=== PATIENT | female | born 2000 | race Caucasian/White ===

== ENCOUNTER 2025-08-27 11:06 | Emergency (ER) | payer MEDICAID, SELFPAY ==
[2025-08-27 11:09] VITALS: BP 134/93; PULSE 102; RESP 20; TEMP 36.8; O2SAT 97; BMI 28.9
--- OUTSIDE RECORDS SUMMARY | 2025-08-27 11:09 | XMS_ITS | Clinical Summary ---
Author Organization [facility] Address [address] [place] [address] Care Team Providers Care Right Of Way Agent Name Role Phone Jennifer Forman PA-C Primary Care Provide r Source Comments You are receiving this document as you are listed as the primary care provider,follow-up provider, or the patient has been referred to you for consultation.This is in compliance with the Medicare and[facility] EHR Incentive Program,which states Providers who transition their patient to another setting of careor provider of care or refers their patient to another provider of care shouldprovide summary care record for each transition of care or referral. [facility] Allerg[facility] Active Allergy Reactions Criticality Noted Date Comments Penicillins Hives High 02/01/2021 Medications w/o A Vit-Fe Fum-FA ( VJVCRFY-XMJT-SO LIC ACID) 106.5-1 MG capsule Take 1 Capsule by mouth daily. Active sertraline (ZOLOFT) 100 MG tablet Take 1 Tablet (100 mg) by mouth daily. 90 Tablet 3 10/30/2024 Active Active Problems Problem Noted Date Diagnosed Date Anxiety 03/07/2022 Comments Yes Resolved Problems Problem Noted Date Diagnosed Date Resolved Date Anxiety disorder affecting p regnancy, antepartum 06/03/2024 10/04/2024 Careplan: Healthy Beginnings 06/03/2024 06/18/2025 Overview (06/03/2024): This patient is enrolled in the Healthy Beginnings Program. The program provides patients with support, education, referrals and resources during their . Reason for enrollment: Insurance, resources as needed For more information, please contact Justina Silva, Healthy Beginnings Specialist, at [phone]. Supervision of normal first , antepartum 01/29/2024 10/04/2024 Encounters Date Type Department Care Team Description 07/18/2025 Nurse Triage Short Nurse Line [address] [place] [address] Jennifer Forman PA-C Alcohol, Abuse 07/18/2025 Telephone Careline [address] [place], [place] [address] Unknown, Physician Withdrawal 07/09/2025 Nurse Triage Short Nurse Line [address] [place] [address] Jennifer Forman PA-C MISCARRIAGE 07/08/2025 2:00 PM CDT Telemedicine [place] [facility]15 Obstetrics/Gynecol ogy [address] [place] [address] Tom Harden MD Missed (Primary Dx) 07/07/2025 Telephone [place] [facility] Obstetrics/Gynecol ogy [address] [place] [address] Tom Harden MD MISCARRIAGE 07/01/2025 8:45 AM CDT Ancillary Procedure [place] [address]trasound [address] [place] [address] Elinor Mccauley MD Missed menses 07/01/2025 Results Follow-Up [place] [facility] Obstetrics/Gynecol ogy [address] [place] [address] Elinor Mccauley MD 06/23/2025 Notes/Orders [place] [facility] Obstetrics/Gynecol ogy 1515 [facility]. [place] [address] [address] Careplan: Healthy Beginnings (Primary Dx) 06/18/2025 10:30 AM CDT Phone Visit [place] [facility] Obstetrics/Gynecol ogy 1515 [facility]. [place] [address] Elinor Mccauley MD bradycardia, antepartum condition or complication (Primary Dx) 06/17/2025 10:30 AM CDT Ancillary Procedure [place] [facility] Ultrasound 15[address] [facility]. [place] [address] Elinor Mccauley MD Encounter for supervision of normal first in first trimester 06/17/2025 Results Follow-Up [place] [facility]15 Obstetrics/Gynecol ogy 1515 [facility]. [place] [address] Elinor Mccauley MD 06/17/2025 Nurse Triage [place] [facility] Obstetrics/Gynecol ogy 1515 [facility]. [place] [address] Elinor Mccauley MD Concerns 06/17/2025 Nurse Triage [facility] Nurse Line [address] [place] [address] Jennifer Forman PA-C , NOS 06/17/2025 Telephone [facility] 14[address] [facility]. [place] [address] Jennifer Forman PA-C Concerns 06/11/2025 12:30 PM CDT Phone Visit [facility] Obstetrics/Gynecol ogy [address] [place] [address] Nurse Intake 4, [id number] Ob Missed menses (Primary Dx) 06/11/2025 E-Visit [facility] Obstetrics/Gynecol ogy [address] [place] [address] Estee, Generic Provider from Last 3 Months Immunizations Immunization Administration Dates Next Due Adult RSV Abrysvo 07/29/2024 DTaP 2002 [id number] (Pediarix) 11/06/2003,02/04/2003 DTaP/Hib 01/01/2004 [id number] 10/07/2009,08/12/2009 HepB Ped/Adol (0-18 yrs) 2002 HepB, Unspecified Formulation 2002 Hib (ActHIB) 11/06/2003,02/04/2003,2002 IPV (Polio) 2002 Influenza (Flucelvax), Preserv Free QIV 06/07/20 20 Benita COVID-19 Vaccine 05/01/2021 MCV4 Menveo 2m.+ (two vial) 04/21/2015 MMR 11/06/2003 Pneumococcal 7, PED 11/06/2003,02/04/2003,2002 Tdap 06/03/2024,04/21/2015 Varicella 11/06/2003 Family History Medical History Relation Name Comments No Known Problems Father Hole in Heart- Born With Mother Stroke Mother Heart Disease Maternal Grandfather Stroke Maternal Grandfather Heart Disease Maternal Grandmother No Known Problems Paternal Grandfather Cancer, Breast Paternal Grandmother No Known Problems Sister Relation Name Status Comments Father Alive Mother Alive Maternal Grandfather Alive Maternal Grandmother Alive Paternal Grandfather Alive Paternal Grandmother Alive Sister Alive Social History Tobacco Use Types Packs/Day Years Used Date Smoking Tobacco: Never Passive Smoke Exposure: Never Smokeless Tobacco: Never Tobacco Cessation:Counseling Given: No Alcohol Use Standard Drinks/Week Comments Not Currently 0 (1 standard drink = 0.6 oz pur e alcohol) rare PHQ-2 Answer Date Recorded PHQ-2 Score 2 01/15/2025 Depression Answer Date Recor ded Last EPDS Total Score 17 02/18/2025 Last EPDS Self Harm Result Not on file 02/18 Comments Yes Sex and Gender Information Value Date Recorded Sex Assigned at Not on file Legal Sex Female 5:48 AM CDT Gender Identity Not on file Sexual Orientation Not on file Occupation Industry Job Start Date Job End Date Homemaker Not on file Not on file Not on file Fiancee: Bob, Control Valve Tech Not on file Not on file Not on file Last Filed Vital Signs Vital Sign Reading Time Taken Comments Blood Pressure 106/88 04/02/2025 8:25 AM CDT Pulse 120 04/02/2025 8:25 AM CDT Temperature 36.6 C (97.8 F) 02/01/2021 2:43 PM CDT Respiratory Rate 20 02/01/2021 2:43 PM CDT Oxygen Saturation 99% 02/01/2021 2:43 PM CDT Inhaled Oxygen Concentration - - Weight 90.7 kg (200 lb) 01/27/2025 9:11 AM CDT Height 171.5 cm (5' 7.5) 01/29/2024 10:42 AM CD T Body Mass Index 30.86 01/29/2024 10:42 AM CDT Plan of Treatment Upcoming Encounters Date Type Department Care Team (Late st Contact Info) Description 09/04/2025 11:30 AM POUND ATTENDANT Appointment [place] [address] Obstetrics/Gynecology [address] [place] [address] Tatiana Rebollar, DIALYSIS TECH, CNM [address] [place] [address] Health Maintenance Due Date Last Done Comments Cervical Cancer Screening Due 2002 MenB Immunization Discussion 2002 HPV Vaccine (1 - 3-dose series) 2017 Adult Preventive Visit 2020 Chlamydia 01/28/2025 01/29/2024, 10/0 09/2020, 02/01/2021, Additional history exists COVID-19 Vaccine ( - season) 2025 05/01/2021 Influenza Vaccine (#1) 2025 06/07/2020 DTaP/Tdap/Td Vaccine (6 - Tdap) 06/03/2034 06/03/2024, 04/21/2015, 01/01/2004, Additional history exists Zoster/Shingles Vaccine (1 of 2) 2052 HepB Vaccine Completed 11/06/2003, 01/23, 2002, Additional history exists Pneumococcal Vaccine Aged Out 11/06/2003, 02/04/2003, 2002 No longer eligible based on patient's age to complete this topic Hib Vaccine Completed 01/01/2004, 10/26, 02/04/2003, Additional history exists MCV4 Vaccine Aged Out 04/21/2015 No longer eligi ble based on patient's age to complete this topic HIV Screening (Preventive Services) Completed 01/29/2024 Hep C Screening (Preventive Services) Completed 01/29/2024 HepA Vaccine Aged Out No longer eligi ble based on patient's age to complete this topic Procedures Procedure Name Priority Date/Time Associated Diagnosis Comments US OB < 14 WEEKS W EV SINGLE FOLLOW UP GROWTH Routine 07/01/2025 9:21 AM CDT Missed menses US OB <14 WEEKS W EV SINGLE Routine 06/17/2025 10:58 AM CDT Encounter for supervision of normal first in first trimester CHLAMYDIA & GC, URINE (14 YEARS AND OLDER) Routine 01/29/2024 11:39 AM CDT Supervision of normal first , antepartum HIV 1/2 AG/AB 4TH GEN Routine 01/29/2024 11:33 AM CDT Supervision of normal first , antepartum HEPATITIS C ANTIBODY, WITH REFLEX (ANTI-HCV) Routine 01/29/2024 11:33 AM CDT Supervision of normal first , antepartum from Last 3 Months or Most Recently Relevant to Health Maintenance Results * US OB <14 Weeks w EV Single Follow Up Growth (07/01/2025 9:21 AM CDT) Anatomical Region Laterality Modality Pelvis Ultrasound Impressions 07/01/2025 9:31 AM CDT Findings diagnostic for nonviable . Signed by: Roland Weston 07/01/2025 9:31 AM Narrative 07/01/2025 9:31 AM CDT EXAM: US OB < 14 WEEKS W EV SINGLE FOLLOW UP GROWTH INDICATION: missed menses COMPARISON: 06/17/2025 TECHNIQUE: Transabdominal and transvaginal imaging was performed. FINDINGS: Gestational sac: Single intrauterine gestational sac. Hemingway-rump length is 5 mm (significantly less than expected given measurements on 06/17/2025). No cardiac activity is identified. Right Ovary: recently measured, appears unremarkable. Left Ovary: recently measured, appears unremarkable. No suspicious adnexal masses. Free Fluid: No significant free fluid. GA by LMP: 11w0d GA by Prior US: 8w1d GA by today's US: 6w3d ANITRA by today's US: N/A Procedure Note Roland Weston MD - 07/01/2025 EXAM: US OB < 14 WEEKS W EV SINGLE FOLLOW UP GROWTH INDICATION: missed menses COMPARISON: 06/17/2025 TECHNIQUE: Transabdominal and transvaginal imaging was performed. FINDINGS: Gestational sac: Single intrauterine gestational sac. Hemingway-rump lengthis 5 mm (significantly less than expected given measurements on06/17/2025). No cardiac activity is identified. Right Ovary: recently measured, appears unremarkable. Left Ovary: recently measured, appears unremarkable. No suspicious adnexal masses. Free Fluid: No significant free fluid. GA by LMP: 11w0d GA by Prior US: 8w1d GA by today's US: 6w3d ANITRA by today's US: N/A IMPRESSION Findings diagnostic for nonviable . Signed by: Roland Weston 07/01/2025 9:31 AM us Elinor Mccauley MD RAD US Final Result * US OB <14 Weeks W EV Single (06/17/2025 10:58 AM CDT) Anatomical Region Laterality Modality Pelvis Ultrasound Impressions 06/17/2025 1:37 PM CDT 1. Early single living intrauterine with sonographic gestational age of six weeks one day, yielding an estimated date of delivery of 02/09/2026. 2. Cardiac motion is bradycardic at 86 beats per minute. First trimester pregnancies that demonstrate heart rates of less than 100 bpm are at an increased risk for poor outcomes. Consider short-term followup. Signed by: Casie Haider 06/17/2025 1:37 PM Narrative 06/17/2025 1:37 PM CDT EXAM: US OB <14 WEEKS W EV SINGLE INDICATION: COMPARISON: None TECHNIQUE: Transabdominal and transvaginal imaging was performed. FINDINGS: Gestational sac: Unremarkable. There is a trace area of subchorionic hemorrhage inferior to the gestational sac measuring 5 x 5 x 2 mm. Hemingway-rump length measures 0.4 cm, corresponding to 6w1d gestational age. Gestational sac location: Eccentric-within normal ANITRA: 02/09/2026 Embryonic/ cardiac activity is identified at 86 bpm. Right Ovary: Measures 3.6 x 2.3 x 1.5 cm and contains a probable corpus luteum. Left Ovary: Measures 3.2 x 1.9 x 1.8 cm and appears unremarkable. No suspicious adnexal masses. Free Fluid: No significant free fluid. GA by LMP: 9w0d GA by Prior US: None GA by today's US: 6w1d ANITRA by today's US: 02/09/2026 Procedure Note Casie Haider MD - 06/17/2025 EXAM: US OB <14 WEEKS W EV SINGLE INDICATION: COMPARISON: None TECHNIQUE: Transabdominal and transvaginal imaging was performed. FINDINGS: Gestational sac: Unremarkable. There is a trace area of subchorionichemorrhage inferior to the gestational sac measuring 5 x 5 x 2 mm. Hemingway-rump length measures 0.4 cm, corresponding to 6w1d gestationalage. Gestational sac location: Eccentric-within normal ANITRA: 02/09/2026 Embryonic/ cardiac activity is identified at 86 bpm. Right Ovary: Measures 3.6 x 2.3 x 1.5 cm and contains a probable corpusluteum. Left Ovary: Measures 3.2 x 1.9 x 1.8 cm and appears unremarkable. No suspicious adnexal masses. Free Fluid: No significant free fluid. GA by LMP: 9w0d GA by Prior US: None GA by today's US: 6w1d ANITRA by today's US: 02/09/2026 IMPRESSION 1. Early single living intrauterine with sonographic gestationalage of six weeks one day, yielding an estimated date of delivery of02/09/2026. 2. Cardiac motion is bradycardic at 86 beats per minute. First trimesterpregnancies that demonstrate heart rates of less than 100 bpm are atan increased risk for poor outcomes. Consider short-term followup. Signed by: Casie Haider 06/17/2025 1:37 [address]or M[address]uley [address] [facility] US Final Result * Chlamydia & GC, Urine (14 Years and Older) (01/29/2024 11:39 AM CDT) Chlamydia Trachomatis STD Not Detected Not Detected 01/30/2024 1:13 AM CDT [facility] N. gonorrhoeae STD Not Detected Not Detected 01/30/2024 1:13 AM CDT [facility] Urine STD (Urine for STD) Non-blood Collection / Unknown 01/29/2024 11:39 AM CDT 01/29/2024 11:39 AM CDT Narrative [facility] - 01/30/2024 1:13 AM CDT Test performed by Angle Bender Mediated Amplification (TMA). June Koroma DO LAB_1 Final Resul t Performing Organization Address City/[facility]/ZIP Co de Phone Number [facility] [address] * HIV 1/2 Ag/Ab 4th Generation (01/29/2024 11:33 AM CDT) HIV 1/2 Antigen/Antib diana (4th generation) Negative (Non Reactive) Negative (Non Reactive) 01/29/2024 6:01 PM CDT [facility] Comment:HIV-1 p24 Antigen an d HIV-1/HIV-2 Antibody not detected Blood Venipuncture / Unknown 01/29/2024 11:33 AM CDT 01/29/2024 11:36 AM CDT June Koroma DO LAB_1 Final Resul t [facility] [address] * Hepatitis C Antibody, with Reflex (01/29/2024 11:33 AM CDT) Hepatitis C Antibody Negative (Non Reactive) Negative (Non Reactive) 01/29/2024 6:01 PM CDT [facility] Comment:Antibodies to HCV no t detected. Does not exclude the possiblity of exposure to HCV. Blood Venipuncture / Unknown 01/29/2024 11:33 AM CDT 01/29/2024 11:36 AM CDT us June M Franci DO LAB_1 Final Resul t [facility] [address] [place], [place] [id number] [place] [address] from Last 3 Months or Most Recently Relevant to Health Maintenance Insurance [facility] OUT OF STATE [facility] * Guarantor: JUSTIN FRANCIS Account Type Relation to Patient Date of Phone Billing Address Personal/Family [address] [place] [address] [address] Teams [address] Of Way Agent Relationship Specialty Start Date End Date Jennifer Forman PA-C [address] [facility] [place] [address] PCP - General Physician Weigh And Charge Worker 05/08/23
--- OUTSIDE RECORDS SUMMARY | 2025-08-27 11:09 | XMS_ITS | Encounter Summary ---
Author Organization [employer] Address [address] [place] [address] Care Team Providers Care Placement Assistant Name Role Phone RickyJennifer hernandez Chase HAMMER Primary Care Provide r Reason for Visit * Reason Comments Withdrawal Encounter Details Date Type Department Care Team (Late st Contact Info) Description 07/18/2025 Telephone Careline [address] [place], [place] [address] Unknown, Physician [address] [place], [place] [id number] Withdrawal Social History Tobacco Use Types Packs/Day Years Used Date Smoking Tobacco: Never Passive Smoke Exposure: Never Smokeless Tobacco: Never Alcohol Use Standard Drinks/Week Comments Not Currently [...] file Not on file Not on file documented as of this encounter Nursing Notes * Armida Linton - 07/18/2025 8:30 PM CDT Verified patient identity using three identifiers: Yes Caller's relationship to patient: Self, Do you have a provider/clinic where you are seen for this? PN Are you calling about a related concern: No What is your question or concern alcohol withdrawal symptoms. If patient is reporting symptoms, are any of the symptoms the patient is describing on the Red FlagList? No: Plan: Transferred patient to appropriate PN clinic for further assistance documented in this encounter Plan of Treatment Upcoming Encounters Date Type Department Care Team (Late st Contact Info) Description 09/04/2025 11:30 AM DATA ENTRY OPERATOR Appointment [place] [address] Obstetrics/Gynecology [address] [place] [phone] Tatiana Rebollar, AERONAUTICAL ENGINEERING TEACHER, CNM [address] [place] [address] documented as of this encounter Visit Diagnoses Not on filedocumented in this encounter Care Teams Placement Assistant Relationship Specialty Start Date End Date Jennifer Forman PA-C [address] [facility] [place] [address] PCP - General Physician Metal Hanging Supervisor 05/08/23 documented as of this encounter
--- OUTSIDE RECORDS SUMMARY | 2025-08-27 11:09 | XMS_ITS | Clinical Summary ---
Author Organization [facility] Address [address] [place] [address] Care Team Providers Care Trash Collector Name Role Phone Deena Barone MD Primary Care Provider Unavaila ble Allergies Active Allergy Reactions Criticality Noted Date Comments Penicillins 03/20/2016 Medications FLUOXETINE HCL PO Active hydrOXYzine (ATARAX) 25 MG tablet Take 1-2 tablets (25-50 mg) by mouth every 6 hours as needed for anxiety 20 tablet 07/06/2018 Active hydrOXYzine (ATARAX) 25 MG tablet Take 1 tablet (25 mg) by mouth every 6 hours as needed for anxiety 20 tablet 09/06/2022 Active Active Problems No known active problems Social History Tobacco Use Types Packs/Day Years Used Date Smoking Tobacco: Never Smokeless Tobacco: Never Alcohol Use Standard Drinks/Week Comments No 0 (1 standard drink = 0.6 oz pur e alcohol) Adolescent Education Answer Date Record ed Getting School Help Needed Not on file 07/01 Comments Unknown Sex and Gender Information Value Date Recorded Sex Assigned at Not on file Legal Sex Female 4:26 AM AIRCRAFT INSTRUMENT MECHANIC Gender Identity Not on file Sexual Orientation Not on file Last Filed Vital Signs Vital Sign Reading Time Taken Comments Blood Pressure 137/79 09/06/2022 3:10 AM AIRCRAFT INSTRUMENT MECHANIC Pulse 88 09/06/2022 3:09 AM AIRCRAFT INSTRUMENT MECHANIC Temperature 36.1 C (97 F) 09/06/2022 3:09 AM AIRCRAFT INSTRUMENT MECHANIC Respiratory Rate 20 09/06/2022 3:09 AM AIRCRAFT INSTRUMENT MECHANIC Oxygen Saturation 100% 09/06/2022 3:09 AM AIRCRAFT INSTRUMENT MECHANIC Inhaled Oxygen Concentration - - Weight 54.4 kg (120 lb) 09/13/2018 1:37 PM AIRCRAFT INSTRUMENT MECHANIC Height 167.6 cm (5' 6) 02/23/2017 8:59 PM CDT Body Mass Index - - Plan of Treatment Health Maintenance Due Date Last Done Comments ADVANCE CARE PLANNING 2002 ANNUAL REVIEW OF HM ORDERS 2002 YEARLY PREVENTIVE VISIT 2005 HIV SCREENING 2017 HPV VACCINE (1 - 3-dose series) 2017 MENINGITIS B VACCINE (1 of 2 - Standard) 2018 HEPATITIS C SCREENING 2020 PAP 2023 PHQ-2 (once per calendar year) 2024 DTAP/TDAP/TD VACCINE (5 - Td or Tdap) 04/21/2025 04/21/2015, 01/01/2004, 11/06/2003, Additional history exists COVID-19 VACCINE (2 - season) 2025 05/01/2021 INFLUENZA VACCINE (#1) 2025 , 10/07/2009, 08/12/2009 ZOSTER VACCINE (1 of 2) 2052 HEPATITIS B VACCINE Completed 11/06/2003, 02/04/2003, 2002, Additional history exists PNEUMOCOCCAL VACCINE: PEDIATRICS (0 to 5 YEARS) AND AT-RISK PATIENTS (6 to 49 YEARS) Aged Out 11/06/2003, 02/04/2003, 2002 No longer eligible based on patient's age to complete this topic MENINGITIS VACCINE Aged Out 04/21/2015 No longer eligible based on patient's age to complete this topic Insurance none (Home) [id number] [place] [id number] BCBS OUT OF STATE Care Teams Trash Collector Relationship Specialty Start Date End Date Deena Barone MD PCP - General 07/06/18
--- OUTSIDE RECORDS SUMMARY | 2025-08-27 11:09 | XMS_ITS | Encounter Summary ---
Author Organization [facility] Address [address] [place] [address] Care Team Providers Care Manager Business Intelligence Name Role Phone SinaiJennifer donahue Chase HAMMER Primary Care Provide r Encounter Details Date Type Department Care Team (Late st Contact Info) Description 06/11/2025 [facility] [address] [facility] [place] [address] Estee, [place] [address] Social History Tobacco Use Types Packs/Day Years [...] on file documented as of this encounter Plan of Treatment Upcoming Encounters Date Type Department Care Team (Late st Contact Info) Description 09/04/2025 11:30 AM SEWING MACHINE REPAIRER HELPER Appointment [place] [address] Obstetrics/Gynecology [address] [place] [phone] Tatiana Rebollar, PET HANDLER, CNM [address] [address] documented as of this encounter Visit Diagnoses Not on filedocumented in this encounter Care Teams Manager Business Intelligence Relationship Specialty Start Date End Date Jennifer Forman PA-C [address] [place] [address] PCP - General Physician Computer Systems Architect 05/08/23 documented as of this encounter
--- OUTSIDE RECORDS SUMMARY | 2025-08-27 11:09 | XMS_ITS | Encounter Summary ---
Author Organization [facility] Address [address] [place] [address] Care Team Providers Care Chamfering Machine Operator Name Role Phone Jennifer Forman PA-C Primary Care Provide r Reason for Visit * Reason Comments Alcohol, Abuse Encounter Details Date Type Department Care Team (Late st Contact Info) Description 07/18/2025 Nurse Triage [facility] Nurse Line [address] [place] [address] Jennifer Forman PA-C [address] [place], [place] [address] Alcohol, Abuse Social History Tobacco Use Types Packs/Day Years [...] file Not on file Not on file Jyoti: Bob, Control Valve Tech Not on file Not on file Not on file documented as of this encounter Nursing Notes * Karla Paz RN - 07/18/2025 8:41 PM CDT Situation/Background (brief explanation of current symptoms/situation): Spoke to pt, calling to report concerns for alcohol withdrawal. Pt states she has been binge drinking for the last week after going through a miscarriage.Has been drinking 10 + shots of vodka and beer daily for the last week Has visible tremors, vomiting and feels anxious. Last drink was yesterday. Pt notes she took 75 mg of hydroxyzine tonight for anxiety. Is prescribed 25 mg. Pt notes she is feeling safe. Has no plans to harm self or others. Care advice given per protocol- pt agrees to plan.Advised to call back for any new or worsening sxs or concerns. Denies hallucinations, weak breathing, violent behavior Reviewed pertinent medical history (as relates to the call): Yes Reviewed pertinent medications (as relates to the call): Yes Reason for Disposition Feeling very shaky (i.e., visible tremors of hands) Protocols used: Alcohol Use and [id number]-Vuhis-QR documented in this encounter Plan of Treatment Upcoming Encounters Date Type Department Care Team (Late st Contact Info) Description 09/04/2025 11:30 AM GROUP ACCOUNT DIRECTOR Appointment [place] [address] Obstetrics/Gynecology [address] [place] [address] Tatiana Rebollar, SIGHTER, CNM [address] [place] [address] documented as of this encounter Visit Diagnoses Not on filedocumented in this encounter Care Teams Chamfering Machine Operator Relationship Specialty Start Date End Date Jennifer Forman PA-C [address] [facility] [place] [address] PCP - General Physician Field Support Representative 05/08/23 documented as of this encounter
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
--- OUTSIDE RECORDS SUMMARY | 2025-08-27 11:53 | XMS_ITS | Clinical Summary ---
Author Organization [facility] Address [address] [place] [id number] Care Team Providers Care Rn Clinical Coordinator Name Role Phone June Koroma DO Primary Care Provider Allergies Active Allergy Reactions Criticality Noted Date Comments Penicillins Rash Low 04/26/2017 Medications hydrOXYzine HCL (ATARAX) 25 mg tabletIndicatio ns:Anxiety Take 1 Tablet (25 mg) by mouth every 6 hours if needed for Anxiety. 20 Tablet 3 Active acetaminophen (TYLENOL) 325 mg tabletIndicatio ns: (normal spontaneous vaginal delivery) (HC) Take 1-2 Tablets (325-650 mg) by mouth every 4 hours if needed (mild pain). Max acetaminophen dose: 4000mg in 24 hrs. 4 Active ibuprofen (Motrin IB) 200 mg tabletIndicatio ns: (normal spontaneous vaginal delivery) (HC) Take 1-3 Tablets (200-600 mg) by mouth every 6 hours if needed (for uterine cramping). Take with food. 4 Active Breast Pump PurchaseIndicat ions: (normal spontaneous vaginal delivery) (HC), care and examination of lactating mother (HC) Electric breast pump for home use. Gestational age at delivery: 38 weeks. Reason for need: maternal infant separation. Length of need: 99 months (lifetime use) 1 Each 4 Active phentermine HCl (PHENTERMINE ORAL) Take by mouth. Activ e Active Problems Problem Noted Date Diagnosed Date Full-term premature rupture of membranes with onset of labor within 24 hours of rupture 08/16/2024 (normal spontaneous vaginal delivery) 08/16 care and examination of lactating mot her 08/16/2024 Anxiety disorder affecting , antepartum 06/03/2024 Supervision of normal first , antepartu m 01/29/2024 Excessive drinking alcohol 11/28/2022 Overview (11/28/2022): See ED note 11/2022 DANE (generalized anxiety disorder) 03/07/2022 Resolved Problems Problem Noted Date Diagnosed Date Resolved Date Encounters for unspecified a dministrative purpose 03/07/2022 03/07/2022 Immunizations Immunization Administration Dates Next Due DTaP 2002 DTaP-HIB (TriHIBIT) 01/01/2004 [id number]-TbiL-BYB (Pediarix) 11/06/2003,10/26,02/04/2003,02/04 HIB PRP-T (ActHIB,Hiberix) 11/06/2003,02/04/2003 ,2002 Hepatitis B (Peds) 2002 Hepatitis B, Unspecified 2002 Inactivated Polio Vaccine 2002 Influenza A (H1N1), Inactivated 10/07/2009,08/12 Influenza,CCIIV4 PRESERV FREE 06/07/2020 MENINGOCOCCAL VACCINE 2 VIAL 2MO-55YO (MENVEO) 04/21/2015 MMR 11/06/2003 Meningococcal Vaccine 04/21/2015 Pneumococcal conj 7-Valent (Prevnar 7) 4,02/04/2003,2002 RSV, Bivalent Vaccine Recons tituted (Abrysvo 120MCG/0.5mL) 07/29/2024 Tdap 06/03/2024,04/21/2015 Varicella Vaccine 11/06/2003 Family History Medical History Relation Name Comments No Known Problems Father Pulmonary embolism Mother Bipolar disorder Paternal Uncle No Known Problems Sister 1 Relation Name Status Comments Father Alive Maternal Grandfather Alive Maternal Grandmother Alive Mother Alive Paternal Grandfather Alive Paternal Grandmother Alive Paternal Uncle Alive Sister 1 Alive Sister 2 Alive Social History Tobacco Use Types Packs/Day Years Used Date Smoking Tobacco: Former Cigarettes 1 10/07/2016 - 05/26/2019 Smokeless Tobacco: Never Tobacco Cessation:Counseling Given: Not Answered Alcohol Use Standard Drinks/Week Comments Not Currently 0 (1 standard drink = 0.6 oz pur e alcohol) Occasional 0-5 PHQ-2 Answer Date Recorded PHQ-2 TOTAL SCORE 0 05/19/2022 Social Connections Answer Date Recorded Do you often feel lonely or isolated from those around you? 0 08/16/2024 Financial Resource Strain Answer Date R ecorded Difficulty of Paying Living Expenses 3 08/12/2024 Difficulty of Paying Living Expenses Not on file 08/12/2024 Food Insecurity Answer Date Recorded Do you worry your food will run out before you are able to buy more? 1 08/16/2024 Transportation Needs Answer Date Record ed Does lack of transportation keep you from medica l appointments? 1 08/16/2024 Does lack of transportation keep you from work, meetings or getting things that you need? 1 08/16/2024 Housing Stability Answer Date Recorded What is your housing situation today? 1 08/16/2024 Interpersonal Safety Answer Date Record ed Are you being hit, kicked, p ushed or yelled at (see row info)? No 03/03/2025 Interpersonal Safety Abuse 12 - 18 Not on file 03/03/2025 Interpersonal Safety Ambulatory Vulnerability No t on file 03/03/2025 Utilities Answer Date Recorded Do you have trouble paying f or utilities (for example, heat, electricity, water, phone)? 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 Gender Identity Not on file Sexual Orientation Not on file Occupation Industry Job Start Date Job End Date student Not on file Not on file Not on file Obstetrics History Para Term AB IAB SAB Ectopic Multiple Livin g Live Births 2 1 1 0 1 1 0 0 1 1 Date Outcome GA Total Labor Labor/2nd/3rd Weight Sex Type Anes PTL Lauren A1 A5 Name Clin 2019 IAB 8w0 d Comments:Surgical 2023 Term 38w 3d 11h 11m 9h 50m/1h 16m/0h 05m 3.44 kg (7 lb 9.3 oz) F Vag-S pont Epidur al Livin g 8 9 Amy h Katerin davidson, Tom Dennison MD Complications:None Delivery Location:Hospital ( [facility]) Last Filed Vital Signs Vital Sign Reading Time Taken Comments Blood Pressure 139/71 03/03/2025 1:20 PM CDT Pulse 92 03/03/2025 1:20 PM CDT Temperature 36.7 C (98.1 F) 03/03/2025 1:20 PM CDT Respiratory Rate 18 03/03/2025 1:20 PM CDT Oxygen Saturation 97% 03/03/2025 1:20 PM CDT Inhaled Oxygen Concentration - - Weight 93.9 kg (207 lb) 03/03/2025 1:20 PM CDT Height 170.2 cm (5' 7) 08/16/2024 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 Body Mass Index 32.42 08/16/2024 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 Plan of Treatment Health Maintenance Due Date Last Done Comments HPV series for age 9-45 (1 - 3-dose series) 2017 Chlamydia for age 16-24 03/11/2020 03/11/2019 BMI (ht and wt on same day) for age 18+ 2020 Hepatitis C screening for ag e 18-79 2020 Pneumococcal series for age 6-49 (1 of 2 - PCV) 2021 11/06/2003, 02/04/2003, 2002 Depression screening for age 12+ 05/19/2023 05/19/2022, 04/20/2022, 04/03/2020, Additional history exists Pap test for age 21-65 2023 COVID-19 vaccine series (2 - 2024- season) 2025 05/01/2021 Influenza Vaccine (#1) 2025 06/07/2020 Tetanus booster 06/03/2034 06/03/2024, 04/21/2015 Hepatitis B series for 19+ Completed 11/06, 11/06/2003, 02/04/2003, Additional history exists HIV for age 15-65 Completed 01/29/2024 RSV vaccine for adults or Completed 07/29/2024 Procedures Procedure Name Priority Date/Time Associated Diagnosis Comments HIV EXTERNAL Routine 01/29/2024 11:33 AM CDT GC CHLAMYDIA TRACH PROBE Routine 03/11/2019 11:50 AM CDT Screening for STD (sexually transmitted disease) from Last 3 Months or Most Recently Relevant to Health Maintenance Results * HIV EXTERNAL (01/29/2024 11:33 AM CDT) EXTERNAL HIV Negative [facility] Blood BLOOD SPECIMEN / Unknown us June Koroma DO LABORATORY Final R esult [facility] [address] [place] [address] * (ABNORMAL) GC & CHLAMYDIA DNA PCR [[id number]] (03/11/2019 11:50 AM CDT) CHLAMYDIA PROBE Positive(A) 03/12/20 19 1:04 PM CDT [facility] N GONORRHOEAE PROBE Negative 03/12/2019 1:04 PM CDT [facility] Other SPECIMEN FROM UTERINE CERVIX / Unknown Non-Blood / Unknown 03/11/2019 11:50 AM CDT 03/11/2019 12:21 PM CDT us Deena Barone MD MICROBIOLOGY Final Res ult [facility] [address] [place] [address], [place] from Last 3 Months or Most Recently Relevant to Health Maintenance Insurance BLUE CROSS OF NON-DE-ITS CARE [place] [facility][note 3]3 [place] [id number] [facility][note 3]3 [place] [id number] Advance Directives * Full Code (Latest Code Status on File) Date Activated Date Inactivated Comments 08/16/2024 7:41 AM 08/17/2024 8:15 PM Question Answer Comments Code Status Discussion: Reviewed Preferences Care Teams Rn Clinical Coordinator Relationship Specialty Start Date End Date June Koroma DO [address] [facility] [place] [address] PCP - General Obstetrics and Gynecology 07/31/24
== END 2025-08-27 12:08 | disposition home or self-care (01) ==
LOC: ED 11:50
PROVIDERS: Emergency Provider Family Medicine
DX: F41.8 Other specified anxiety disorders (principal); F41.0 Panic disorder [episodic paroxysmal anxiety]; Z63.0 Problems in relationship with spouse or partner; Z87.59 Personal history of other complications of pregnancy, childbirth and the puerperium
CPT/HCPCS: 99283; A9270

== ENCOUNTER 2025-09-15 07:16 | Emergency (ER) | payer MEDICAID, SELFPAY ==
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
--- OUTSIDE RECORDS SUMMARY | 2025-09-04 12:40 | XMS_ITS | Encounter Summary ---
Author Organization [facility]Part[facility] Address [address] [place] [address] Care Team Providers Care Snapper On Name Role Phone SinairowanJennifer PA-C Primary Care Provide r Encounter Details DateTypeDepartmentCare Team (Latest Contact Info)Mninuwbxtjv12/11/2025 12:40 PM CSTLab Visit [facility] [address] [place] [address] Special screening examination for viral disease; Screening examination for venereal disease Social History Tobacco UseTypesPacks/DayYears UsedDateSmoking Tobacco: NeverPassive Smoke Exposure: NeverSmokeless Tobacco: NeverAlcohol UseStandard Drinks/WeekComments Not Currently0 (1 standard drink = 0.6 oz pure alcohol)rarePHQ-2AnswerDate RecordedPHQ-2 Ojqgk470Postpartum DepressionAnswerDate RecordedLast EPDS Total Reeru8830/27/2025Last EPDS Self Harm ResultNot on file02/18/2025 CommentsNoSex and Gender InformationValueDate RecordedSex Assigned at BirthNot on fileLegal AkgFmhysh20/10/2012 5:48 AM CDTGender IdentityNot on fileSexual OrientationNot on fileOccupationIndustryJob Start DateJob End DateHomemakerNot on fileNot on fileNot on fileFiancee: Bob, Control Valve TechNot on fileNot on fileNot on filedocumented as of this encounter Plan of Treatment Not on file documented as of this encounter Procedures Procedure NamePriorityDate/TimeAssociated DiagnosisCommentsSYPHILIS PANEL (WITH REFLEX)Nkzstkg0409/04/2025 12:22 PM PIANO PLAYER Special screening examination for viral disease Screening examination for venereal disease SYPHILIS PANEL (WITH REFLEX)Nqinyce3009/04/2025 12:22 PM PIANO PLAYER Special screening examination for viral disease Screening examination for venereal disease HIV 1/2 AG/AB 4TH BLSLxpmzpa19/11/2025 12:22 PM PIANO PLAYER Special screening examination for viral disease Screening examination for venereal disease HEPATITIS C ANTIBODY, WITH REFLEX (ANTI-HCV)Mdomrmk2109/04/2025 12:22 PM PIANO PLAYER Special screening examination for viral disease Screening examination for venereal disease HCG, QUANTITATIVE, SERUM PREGNANCYSame Day09/04/2025 12:22 PM PIANO PLAYER Special screening examination for viral disease Screening examination for venereal disease HEPATITIS B SURFACE ANTIGEN (HBSAG)Faydgev3909/04/2025 12:22 PM PIANO PLAYER Special screening examination for viral disease Screening examination for venereal disease documented in this encounter Results * Syphilis Panel, with Reflex (09/04/2025 12:22 PM PIANO PLAYER)ComponentValueRef Range Test MethodAnalysis TimePerformed AtPathologist SignatureTreponema Screen InterpretationNon ReactiveNon Cjfjuwxd98/11/2025 5:01 PM CSTTHE [facility] LABORATORYSyphilis Panel CommentNegative - No serological evidence of syphilis.09/04/2025 5:01 PM CSTTHE [facility] LABORATORYSpecimen (Source) Anatomical Location / LateralityCollection Method / VolumeCollection Time Received TimeBloodVenipuncture / Ijggzkf9809/04/2025 12:22 PM CST09/04/2025 12:22 PM PIANO PLAYER Narrative Authorizing ProviderResult TypeResult StatusTatiana Rebollar APRN, CNMLAB_1Final ResultPerforming OrganizationAddressCity/State/ZIP CodePhone Number [facility] CLIA: [id number] [address] [place] [address] * HIV 1/2 Ag/Ab 4th Generation (09/04/2025 12:22 PM PIANO PLAYER)ComponentValueRef Range Test MethodAnalysis TimePerformed AtPathologist SignatureHIV 1/2 Antigen/Antibody (4th generation)Negative (Non Reactive)Negative (Non Reactive)09/04/2025 4:56 PM CSTTHE [facility] LABORATORYComment:HIV-1 p24 Antigen and HIV-1/HIV-2 Antibody not detectedSpecimen (Source)Anatomical Location / LateralityCollection Method / VolumeCollection TimeReceived Time BloodVenipuncture / Pfxbnrw0509/04/2025 12:22 PM CST09/04/2025 12:22 PM PIANO PLAYER Narrative Authorizing ProviderResult TypeResult StatusTatiana Rebollar APRN, CNMLAB_1Final ResultPerforming OrganizationAddressCity/State/ZIP CodePhone [facility] CLIA: [id number] [address] [place] [address] * Hepatitis C Antibody, with Reflex (09/04/2025 12:22 PM PIANO PLAYER)ComponentValueRef RangeTest MethodAnalysis TimePerformed AtPathologist SignatureHepatitis C AntibodyNegative (Non Reactive)Negative (Non Reactive)09/04/2025 4:56 PM PIANO PLAYER [facility] LABORATORYComment:Antibodies to HCV not detected. Does not exclude the possiblity of exposure to HCV.Specimen (Source)Anatomical Location / LateralityCollection Method / VolumeCollection TimeReceived TimeBlood Venipuncture / Stykweu4109/04/2025 12:22 PM CST09/04/2025 12:22 PM PIANO PLAYER Narrative Authorizing ProviderResult TypeResult StatusTatiana Rebollar APRN, CNMLAB_1Final ResultPerforming OrganizationAddressCity/State/ZIP CodePhone Number [facility] CLIA: [id number] [address] [place] [address] * HEP B SURFACE ANTIGEN, NO REFLEX (09/04/2025 12:22 PM PIANO PLAYER)ComponentValueRef RangeTest MethodAnalysis TimePerformed AtPathologist SignatureHepatitis B Surface AntigenNegative (Non Reactive)Negative (Non Reactive)09/04/2025 5:01 PM CSTTHE [facility] LABORATORYSpecimen (Source)Anatomical Location / LateralityCollection Method / VolumeCollection TimeReceived TimeBlood Venipuncture / Bjbxbkd3609/04/2025 12:22 PM CST09/04/2025 12:22 PM PIANO PLAYER Narrative Authorizing ProviderResult TypeResult StatusCari Zeny AlvaradoRebollarurban BOLDENN, CNMLAB_1Final ResultPerforming OrganizationAddressCity/State/ZIP CodePhone Number [facility] CLIA: [id number] [facility] * HCG, Quantitative, Serum (09/04/2025 12:22 PM PIANO PLAYER)ComponentValueRef RangeTest MethodAnalysis TimePerformed AtPathologist SignatureHCG, Quantitative<2<=4 mIU/mL09/04/2025 4:26 PM CSTTHE [facility] Specimen (Source)Anatomical Location / LateralityCollection Method / Volume Collection TimeReceived TimeBloodVenipuncture / Gwcbagk7109/04/2025 12:22 PM PIANO PLAYER 09/04/2025 12:22 PM PIANO PLAYER Narrative [facility] - 09/04/2025 4:26 PM PIANO PLAYER Expected ranges Negative: <5 mIU/mL Indeterminate: 5-25 mIU/mL Positive: >25 mIU/mL Suggest repeat testing of indeterminate result in 72 hours. Authorizing ProviderResult TypeResult StatusCari Zeny Rebollar APRN, CNMLAB_1Final ResultPerforming OrganizationAddressCity/State/ZIP CodePhone Number [facility] CLIA: [id number] [facility] [address] documented in this encounter Visit Diagnoses Diagnosis Special screening examination for viral disease Special screening examination for unspecified viral disease Screening examination for venereal disease documented in this encounter Care Teams Team MemberRelationshipSpecialtyStart DateEnd Date Jennifer Forman PA-C [address] [facility] [place] [address] PCP - GeneralPhysician 05/08/23documented as of this encounter
[2025-09-15] VITALS (12 sets, daily range): BP systolic 113–138; BP diastolic 71–103; PULSE 73–102; RESP 16; O2SAT 88–98
--- OUTSIDE RECORDS SUMMARY | 2025-09-15 07:18 | XMS_ITS | Encounter Summary ---
Author Organization [facility] Address [address] [place] [address] Care Team Providers Care Manager Software Development Name Role Phone Jennifer Forman Chase HAMMER Primary Care Provide r Encounter Details DateTypeDepartmentCare Team (Latest Contact Info)Dzkttuljasb96/12/2025Results Follow-Up [place] [address] Obstetrics/Gynecology [address] [place] [address] Tatiana Rebollar, MOVIE WRITER, CNM [address] [place] [address] Social History Tobacco UseTypesPacks/DayYears UsedDateSmoking Tobacco: NeverPassive Smoke Exposure: NeverSmokeless Tobacco: NeverAlcohol UseStandard Drinks/WeekComments Not Currently0 (1 standard drink = 0.6 oz pure alcohol)rarePHQ-2AnswerDate RecordedPHQ-2 Zimmk440Postpartum DepressionAnswerDate RecordedLast EPDS Total Qvywr8282/27/2025Last EPDS Self Harm ResultNot on file02/18/2025 CommentsNoSex and Gender InformationValueDate RecordedSex Assigned at BirthNot on fileLegal NttTyzqze27/10/2012 5:48 AM CDTGender IdentityNot on fileSexual OrientationNot on fileOccupationIndustryJob Start DateJob End DateHomemakerNot on fileNot on fileNot on fileFiancee: Bob, Control Valve TechNot on fileNot on fileNot on filedocumented as of this encounter Progress Notes * Tatiana Rebollar APRN, CNM - 09/05/2025 4:51 PM CST Normal labs. Message sent via [employer]. LRY MODEL MAKER * Tatiana Rebollar APRN, CNM - 09/05/2025 7:16 AM CST Normal labs. Message sent via [employer]. LRY MODEL MAKER documented in this encounter Plan of Treatment Not on file documented as of this encounter Visit Diagnoses Not on filedocumented in this encounter Care Teams Team MemberRelationshipSpecialtyStart DateEnd Date Jennifer Forman PA-C [address] [place] [address] PCP - GeneralPhysician Assistant05/08/23documented as of this encounter
--- OUTSIDE RECORDS SUMMARY | 2025-09-15 07:18 | XMS_ITS | Clinical Summary ---
Author Organization [employer] [facility] Address [address] [place] [address] Care Team Providers Care Sales Officer Name Role Phone June Koroma DO Primary Care Provider Allergies Active AllergyReactionsCriticalityNoted GioiAirugnsvGraifsreilyKruzMhx86/02/2017 Medications MedicationSigDispense QuantityRefillsLast FilledStart DateEnd DateStatus hydrOXYzine HCL (ATARAX) 25 mg tablet Indications:AnxietyTake 1 Tablet (25 mg) by mouth every 6 hours if needed for Anxiety. 20 Tablet 11/23/2022ctive acetaminophen (TYLENOL) 325 mg tablet Indications: (normal spontaneous vaginal delivery) (HC)Take 1-2 Tablets (325-650 mg) by mouth every 4 hours if needed (mild pain). Max acetaminophen dose:4000mg in 24 hrs.08/17/2024ctive ibuprofen (Motrin IB) 200 mg tablet Indications: (normal spontaneous vaginal delivery) (HC)Take 1-3 Tablets (200-600 mg) by mouth every 6 hours if needed (for uterine cramping). Take with food.08/17/2024ctive Breast Pump Purchase Indications: (normal spontaneous vaginal delivery) (HC), care and examination of lactating mother (HC)Electric breast pump for home use. Gestational age at delivery: 38 weeks. Reason for need: maternalinfant separation. Length of need: 99 months (lifetime use) 1 Each 08/17/2024ctive phentermine HCl (PHENTERMINE ORAL) Take by mouth.Active Active Problems ProblemNoted DateDiagnosed DateFull-term premature rupture of membranes with onset of labor within 24 hours of vdjhkyt6408/16/2024NSVD (normal spontaneous vaginal delivery)08/16/2024ostpartum care and examination of lactating mother 08/16/2024nxiety disorder affecting , fihtknbzvj50/09/2024Supervision of normal first , umwaqwxeru70/06/2024Excessive drinking alcohol 11/28/2022 Overview (11/28/2022): See ED note 11/2022 DANE (generalized anxiety disorder)03/07/2022 Resolved Problems ProblemNoted DateDiagnosed DateResolved DateEncounters for unspecified administrative acytfzp65 Immunizations ImmunizationAdministration DatesNext JhmIEzF4812/10/2002DTaP-HIB (TriHIBIT) 01/01/20040710DLjF-BvmO-HEZ (Pediarix)11/06/2003,11/06/2003,02/04/2003,02/04/2003HIB PRP-T (ActHIB,Hiberix)11/06/2003,02/04/2003,2002Hepatitis B (Peds) 2002Hepatitis B, Wpntbfhnnmd2002Inactivated Polio Xjgamql9912/10/2002 Influenza A (H1N1), Thidttabvbm03/13/2010,08/12/2009Influenza,CCIIV4 PRESERV FREE06/07/2020MENINGOCOCCAL VACCINE 2 VIAL 2MO-55YO (MENVEO)04/21/2015MMR 11/06/2003Meningococcal Kmwgqgh2504/21/2015Pneumococcal conj 7-Valent (Prevnar 7) 11/06/2003,02/04/2003,2002RSV, Bivalent Vaccine Reconstituted (Abrysvo 120MCG/0.5mL)07/29/2024Tdap06/03/2024,04/21/2015Varicella Hpfbois6511/06/2003 Family History Medical HistoryRelationNameCommentsNo Known ProblemsFatherPulmonary embolism MotherBipolar disorderPaternal UncleNo Known ProblemsSister 1RelationNameStatus CommentsFatherAliveMaternal GrandfatherAliveMaternal GrandmotherAliveMotherAlive Paternal GrandfatherAlivePaternal GrandmotherAlivePaternal UncleAliveSister 1 AliveSister 2Alive Social History Tobacco UseTypesPacks/DayYears UsedDateSmoking Tobacco: FormerCigarettes 2017 - 05/26/2019Smokeless Tobacco: Never Tobacco Cessation:Counseling Given: Not Answered Alcohol UseStandard Drinks/WeekCommentsNot Currently0 (1 standard drink = 0.6 oz pure alcohol)Occasional 6-5FKD-3DvehoeNwby RecordedPHQ-2 TOTAL LUGKK535 Social ConnectionsAnswerDate RecordedDo you often feel lonely or isolated from those around you?Financial Resource StrainAnswerDate Recorded Difficulty of Paying Living Pvkducas259/18/2024ifficulty of Paying Living ExpensesNot on file08/12/2024Food InsecurityAnswerDate RecordedDo you worry your food will run out before you are able to buy more?Transportation NeedsAnswerDate RecordedDoes lack of transportation keep you from medical appointments?oes lack of transportation keep you from work, meetings or getting things that you need?Housing StabilityAnswerDate Recorded What is your housing situation today?Interpersonal SafetyAnswerDate RecordedAre you being hit, kicked, pushed or yelled at (see row info)?No 03/03/2025Interpersonal Safety Abuse 12 - 18Not on file03/03/2025Interpersonal Safety Ambulatory VulnerabilityNot on file03/03/2025UtilitiesAnswerDate Recorded Do you have trouble paying for utilities (for example, heat, electricity, water, phone)?regnantCommentsNoSex and Gender InformationValueDate Recorded Sex Assigned at BirthNot on fileLegal KxgBzwjsy77/14/2013 7:07 AM CSTGender IdentityNot on fileSexual OrientationNot on fileOccupationIndustryJob Start Date Job End DatestudentNot on fileNot on fileNot on file Obstetrics History GravidaParaTermPretermABIABSABEctopicMultipleLivingLive [id number] OutcomeGATotal LaborLabor/2nd/1kkFddelwCpvCxldSqryDWMKbhK7H1YrlzOpol7975GLP6q5k Comments:Rccoislh98/22/4877Fdxa40o4v04p 11m9h 50m/1h 16m/0h 05m3.44 kg (7 lb 9.3 oz)FVag-EjnsgYsxduybjLlkwjs30Ovpwoqx Tom Espitia MD Complications:NoneDelivery Location:Hospital ([facility] ) Last Filed Vital Signs Vital SignReadingTime TakenCommentsBlood Imuiozzd669/71003/03/2025 1:20 PM CDT Ylhgg363503/03/2025 1:20 PM JZACeocfszuwmw35.7 ??C (98.1 ??F)03/03/2025 1:20 PM CDTRespiratory Bbxf410903/03/2025 1:20 PM CDTOxygen Hifslioygt38%03/03/2025 1:20 PM CDTInhaled Oxygen Concentration--Tttenq49.9 kg (207 lb)03/03/2025 1:20 PM CDT Pcywku172.2 cm (5' 7)08/16/2024 7:07 AM CSTBody Mass Index32.42110/16/2023 7:07 AM 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 Plan of Treatment Health MaintenanceDue DateLast DoneCommentsHPV series for age 9-45 (1 - 3-dose series)2017Chlamydia for age 16-240BMI (ht and wt on same day) for age 18+2020Hepatitis C screening for age 18-7908/07/2020 Pneumococcal series for age 6-49 (1 of 2 - PCV)/08/2004, 02/04/2003, 2002Depression screening for age 12+/, 04/20/2022, 04/03/2020, Additional history existsPap test for age 21-653COVID-19 vaccine series (2 - 2024- season)05/26//03/2021Influenza Vaccine (#1) 509/Tetanus /05/2024, 04/21/2015Hepatitis B series for 19+Uhhmqvule11/12/2004, 11/06/2003, 02/04/2003, Additional history existsHIV for age 15-36Djmpaqzie68/06/2024 Procedures Procedure NamePriorityDate/TimeAssociated DiagnosisCommentsHIV EXTERNALRoutine 01/29/2024 11:33 AM CDT GC CHLAMYDIA TRACH JCKMEOzhhpyg10/17/2019 11:50 AM CDT Screening for STD (sexually transmitted disease) from Last 3 Months or Most Recently Relevant to Health Maintenance Results * HIV EXTERNAL (01/29/2024 11:33 AM CDT)ComponentValueRef RangeTest Method Analysis TimePerformed AtPathologist SignatureEXTERNAL HIVNegativePENN MEDICINE PRINC[facility] CENTERSpecimen (Source)Anatomical Location / LateralityCollection Method / VolumeCollection TimeReceived TimeBloodBLOOD SPECIMEN / Unknown Narrative Authorizing ProviderResult TypeResult StatusRachadeangelo Koroma DOLABORATORY Final ResultPerforming OrganizationAddressCity/State/[facility] CenterPhone Number [facility] [address] [place] [address] * (ABNORMAL) GC & CHLAMYDIA DNA PCR [[id number]] (03/11/2019 11:50 AM CDT)Component ValueRef RangeTest MethodAnalysis TimePerformed AtPathologist Signature CHLAMYDIA PROBEPositive(A) 03/12/2019 1:04 PM CDTALLINOHIOHEALTH [facility]IV[facility]- CENTRAL LABORATORYN GONORRHOEAE PROBENegative 03/12/2019 1:04 PM CDTALAITKIN [facility] LABOR[facility]-CENTRAL LABORATORYSpecimen (Source)Anatomical Location / LateralityCollection Method / VolumeCollection TimeReceived TimeOtherSPECIMEN FROM UTERINE CERVIX / UnknownNon-Blood / Ijbvrdh5003/11/2019 11:50 AM CDT 03/11/2019 12:21 PM CDT Narrative Authorizing ProviderResult TypeResult StatusShjustus Barone MDMICROBIOLOGY Final ResultPerforming OrganizationAddressCity/State/ZIP CodePhone Number [facility] [address] [place] [address], from Last 3 Months or Most Recently Relevant to Health Maintenance Insurance * Guarantor: Lala Sandhu TypeRelation to PatientDate of PhoneBilling AddressPersonal/Hh[phone] [place] [address] * Guarantor: Rosalba Sandhu JAccocarrie TypeRelation to PatientDate of PhoneBilling AddressPersonal/FamilyStep Tdzzbg3011/04/1964 [address] [address] Advance Directives * Full Code (Latest Code Status on File) Date ActivatedDate AitwpqiswhhPiecomnp43/22/2024 7:41 AM08/17/2024 8:15 PM QuestionAnswerCommentsCode Status Discussion:* Reviewed Preferences Care Teams Team MemberRelationshipSpecialtyStart DateEnd Date June Koroma DO [address] [place] [address] PCP - GeneralObstetrics and Oyrkzogidv93/6/24
--- OUTSIDE RECORDS SUMMARY | 2025-09-15 07:18 | XMS_ITS | Clinical Summary ---
Author Organization [facility] Address [address] [place] [address] Care Team Providers Care Insurance Business Analyst Name Role Phone Deena Barone MD Primary Care Provider Unavaila ble Allergies Active AllergyReactionsCriticalityNoted BirsAbztnzccXtpubtxhghj10/26/2016 Medications MedicationSigDispense QuantityRefillsLast FilledStart DateEnd DateStatus FLUOXETINE HCL PO Active hydrOXYzine (ATARAX) 25 MG tablet Take 1-2 tablets (25-50 mg) by mouth every 6 hours as needed for anxiety 20 tablet 07/06/2018Active hydrOXYzine (ATARAX) 25 MG tablet Take 1 tablet (25 mg) by mouth every 6 hours as needed for anxiety 20 tablet 09/06/2022ctive Active Problems No known active problems Social History Tobacco UseTypesPacks/DayYears UsedDateSmoking Tobacco: NeverSmokeless Tobacco: NeverAlcohol UseStandard Drinks/WeekCommentsNo0 (1 standard drink = 0.6 oz pure alcohol)Adolescent EducationAnswerDate RecordedGetting School Help NeededNot on file3CommentsUnknownSex and Gender InformationValueDate RecordedSex Assigned at BirthNot on fileLegal DjxSftdkc24/04/2012 4:26 AM [employer] Gender IdentityNot on fileSexual OrientationNot on file Last Filed Vital Signs Vital SignReadingTime TakenCommentsBlood Qjtdrukv867/7909/06/2022 3:10 AM [employer] Ufico041509/06/2022 3:09 AM DBZVxduygfooii87.1 ??C (97 ??F)09/06/2022 3:09 AM [employer] Respiratory Aylb0324 3:09 AM CSTOxygen Nounediiea158%09/06/2022 3:09 AM CSTInhaled Oxygen Concentration--Lbgdqj25.4 kg (120 lb)09/13/2018 1:37 PM [employer] Zwtpqu995.6 cm (5' 6)02/23/2017 8:59 PM CDTBody Mass Index-- Plan of Treatment Not on file Insurance * Guarantor: Roseann SANDHU TypeRelation to PatientDate of BirthPhone Billing AddressPersonal/NabhkqCzoono69/16/1971 none (Home) [address] [place] [address] [facility] [place] [address] Care Teams Team MemberRelationshipSpecialtyStart DateEnd Date Deena Barone MD PCP - Htpiqph59/12/18
--- OUTSIDE RECORDS SUMMARY | 2025-09-15 07:18 | XMS_ITS | Clinical Summary ---
Author Organization [facility] Address [address] [place] [address] Care Team Providers Care Bundler Seasonal Greenery Name Role Phone Jennifer Forman PA-C Primary Care Provide r Source Comments You are receiving this document as you are listed as the primary care provider,follow-up provider, or the patient has been referred to you for consultation.This is in compliance with the Medicare andMedicaid EHR Incentive Program,which states Providers who transition their patient to another setting of careor provider of care or refers their patient to another provider of care shouldprovide summary care record for each transition of care or referral. [facility] Allergies Active AllergyReactionsCriticalityNoted DateCommentsPenicillinsHivesHigh 02/01/2021 Medications MedicationSigDispense QuantityRefillsLast FilledStart DateEnd DateStatus w/o A Vit-Fe Fum-FA ( HQWCMKV-PFIV-ZTLVR ACID) 106.5-1 MG capsule Take 1 Capsule by mouth daily.Active sertraline (ZOLOFT) 100 MG tablet Take 1 Tablet (100 mg) by mouth daily. 90 Tablet 302502/6Active Additional Information Patient not taking.Reported on 09/04/2025 Active Problems ProblemNoted DateDiagnosed OcvrFiuqwzx87/13/2022 Resolved Problems ProblemNoted DateDiagnosed DateResolved DateAnxiety disorder affecting , pudnrfcvbe13areplan: Healthy Ofsgjmobzc95/09/2024 06/18/2025 Overview (06/03/2024): This patient is enrolled in the Healthy Beginnings Program. The program provides patients with support, education, referrals and resources during their . Reason for enrollment: Insurance, resources as needed For more information, please contact Justina Silva, Healthy Beginnings Specialist, at [phone]. Supervision of normal first , zumaovcckb67 Encounters DateTypeDepartmentCare QhuxXqlrqxfqfxm91/12/2025Results Follow-Up [place] [address] Obstetrics/Gynecology [address] [place] [phone] Tatiana Rebollar APRN, CNM 09/04/2025 12:40 PM CSTLab Visit [address] [phone] Special screening examination for viral disease; Screening examination for venereal dvjucqn4909/04/2025 11:30 AM CSTOffice Visit [place] [address] Obstetrics/Gynecology [address] [place] [phone] Tatiana Rebollar APRN, YESENIA Follow-up visit after miscarriage (Primary Dx); Special screening examination for viral disease; Screening examination for venereal disease; Anxiety (HRC); General counseling and advice for contraceptive ddzcwniorr25/24/2025Nurse Triage [facility] [address] [place] [address] Jennifer Forman PA-C Alcohol, Abuse07/18/2025Telephone Careline [address] [place] [address] Unknown, Physician Nuwhwivztp33/15/2025Nurse Triage [facility] [address] [place] [address] Jennifer Forman PA-C GTVYMECBLLE47/14/2025 2:00 PM CDTTelemedicine [place] 1515 Obstetrics/Gynecology [address] [place] [address] Tom Harden MD Missed (Primary Dx)07/07/2025Telephone [place] [facility]15 Obstetrics/Gynecology [address] [place] [address] Tom Harden MD VUQQQAWAQZW38/07/2025 8:45 AM CDTAncillary Procedure [place] [address] [place] [address] Elinor Mccauley MD Missed xngosi0807/01/2025Results Follow-Up [place] [id number] Obstetrics/[facility] [address] [facility] [place] [address] Elinor Mccauley MD 06/23/2025Notes/Orders [place] [address] Obstetrics/Gynecology [address] [place] [address] Hbspec, Luis Manuel Obg8 Careplan: Healthy Beginnings (Primary Dx)06/18/2025 10:30 AM CDTPhone Visit [place] [address] Obstetrics/Gynecology [facility] [place] [address] Elinor Mccauley MD bradycardia, antepartum condition or complication (Primary Dx)06/17/2025 10:30 AM CDTAncillary Procedure [place] [address] Ultrasound [address] [facility] [place] [address] Elinor Mccauley MD Encounter for supervision of normal first in first fmcihuair03/23/2025 Results Follow-Up [place] 938425 Obstetrics/Gynecology [address] [place] [address] Elinor Mccauley MD 06/17/2025Nurse Triage [place] 1515 Obstetrics/Gynecology [address] [place] [address] Elinor Mccauley MD Lojeunua65/23/2025Nurse Triage [facility] [address] [place] [address] Jennifer Forman PA-C , NOS06/17/2025Telephone [place] [facility] [address] [facility] [place] [address] Jennifer Forman PA-C Concernsfrom Last 3 Months Immunizations ImmunizationAdministration DatesNext DueAdult RSV Vzhxext24/04/2024DTaP 12/10/20029295VZcA-KhiY-IIY (Pediarix)11/06/2003,02/04/2003DTaP/Hib01/01/2004 U2T7-Jbmwnyfegf94/13/2010,08/12/2009HepB Ped/Adol (0-18 yrs)2002HepB, Unspecified Vmghbepvenq2002Hib (ActHIB)11/06/2003,02/04/2003,2002IPV (Polio)2002Influenza (Flucelvax), Preserv Free QIV06/07/2020Janssen COVID- 19 Wrilnkp8305/01/2021MCV4 Menveo 2m.+ (two vial)04/21/2015MMR11/06/2003 Pneumococcal 7, PED11/06/2003,02/04/2003,2002Tdap06/03/2024,04/21/2015 Ekmdvznfq67/12/2004 Family History Medical HistoryRelationNameCommentsNo Known ProblemsBirth FatherHole in Heart- Born WithBirth MotherStrokeBirth MotherHeart DiseaseMaternal GrandfatherStroke Maternal GrandfatherHeart DiseaseMaternal GrandmotherNo Known ProblemsPaternal GrandfatherCancer, BreastPaternal GrandmotherNo Known ProblemsSisterRelationName StatusCommentsBirth FatherAliveBirth MotherAliveMaternal GrandfatherAlive Maternal GrandmotherAlivePaternal GrandfatherAlivePaternal GrandmotherAlive SisterAlive Social History Tobacco UseTypesPacks/DayYears UsedDateSmoking Tobacco: NeverPassive Smoke Exposure: NeverSmokeless Tobacco: Never Tobacco Cessation:Counseling Given: No Alcohol UseStandard Drinks/WeekCommentsNot Currently0 (1 standard drink = 0.6 oz pure alcohol)rarePHQ-2AnswerDate RecordedPHQ-2 Aguie807Postpartum DepressionAnswerDate RecordedLast EPDS Total Xvynw2025/27/2025Last EPDS Self Harm ResultNot on file02/18/2025CommentsNoSex and Gender Information ValueDate RecordedSex Assigned at BirthNot on fileLegal BqjJqmwvd83/10/2012 5:48 AM CDTGender IdentityNot on fileSexual OrientationNot on fileOccupationIndustry Job Start DateJob End DateHomemakerNot on fileNot on fileNot on fileFiancee: Bob, Control Valve TechNot on fileNot on fileNot on file Last Filed Vital Signs Vital SignReadingTime TakenCommentsBlood Nexhaimr277/7209/04/2025 12:26 PM DATA MANAGEMENT Zfbik909309/04/2025 12:26 PM SVAOmyibgtsmca96.6 ??C (97.8 ??F)02/01/2021 2:43 PM CDTRespiratory Vtim3206 2:43 PM CDTOxygen Jpdiwwiyut22%02/01/2021 2:43 PM CDTInhaled Oxygen Concentration--Qfswdc76.7 kg (200 lb)01/27/2025 9:11 AM CDT Rlxigj404.5 cm (5' 7.5)01/29/2024 10:42 AM CDTBody Mass Index30.8601/29/2024 10:42 AM CDT Plan of Treatment Health MaintenanceDue DateLast DoneCommentsCervical Cancer Screening Due 2002MenB Immunization Xskxnmwhfr2002Varicella Vaccine (2 of 2 - 2- dose childhood series)/08/2004HPV Vaccine (1 - 3-dose series) 2017Adult Preventive Visit2020COVID-19 Vaccine ( - season) /03/2021Influenza Vaccine (#1)509/Chlamydia 612/07/2025, 01/29/2024, 06/25/2021, Additional history exists DTaP/Tdap/Td Vaccine (6 - Tdap)409/05/2024, 04/21/2015, 01/01/2004, Additional history existsZoster/Shingles Vaccine (1 of 2)2052HepB Vaccine Ptgyzzycq56/12/2004, 02/04/2003, 2002, Additional history exists Pneumococcal VaccineAged Out11/06/2003, 02/04/2003, 2002No longer eligible based on patient's age to complete this topicHib VtyifyqNbtjwjlns44/08/2004, 11/06/2003, 02/04/2003, Additional history existsMCV4 VaccineAged Out04/21/2015 No longer eligible based on patient's age to complete this topicHIV Screening (Preventive Services)Kwimoomgt63/11/2025, 01/29/2024Hep C Screening (Preventive Services)Dtpjfrmwd46/11/2025, 01/29/2024HepA VaccineAged OutNo longer eligible based on patient's age to complete this topic Procedures Procedure NamePriorityDate/TimeAssociated DiagnosisCommentsVAGINITIS PANEL Hgumfhu2809/04/2025 12:35 PM DATA MANAGEMENT Special screening examination for viral disease Screening examination for venereal disease CHLAMYDIA & GC (14 YEARS & OLDER)Uzrdpph9909/04/2025 12:35 PM DATA MANAGEMENT Special screening examination for viral disease Screening examination for venereal disease SYPHILIS PANEL (WITH REFLEX)Ycbqodw8309/04/2025 12:22 PM DATA MANAGEMENT Special screening examination for viral disease Screening examination for venereal disease HIV 1/2 AG/AB 4TH HJIPmxnxef74/11/2025 12:22 PM DATA MANAGEMENT Special screening examination for viral disease Screening examination for venereal disease HEPATITIS C ANTIBODY, WITH REFLEX (ANTI-HCV)Kybmwrp1509/04/2025 12:22 PM DATA MANAGEMENT Special screening examination for viral disease Screening examination for venereal disease HEPATITIS B SURFACE ANTIGEN (HBSAG)Rzuouvd4809/04/2025 12:22 PM DATA MANAGEMENT Special screening examination for viral disease Screening examination for venereal disease SYPHILIS PANEL (WITH REFLEX)Cofwcel5009/04/2025 12:22 PM DATA MANAGEMENT Special screening examination for viral disease Screening examination for venereal disease HCG, QUANTITATIVE, SERUM PREGNANCYSame Day09/04/2025 12:22 PM DATA MANAGEMENT Special screening examination for viral disease Screening examination for venereal disease US OB < 14 WEEKS W EV SINGLE FOLLOW UP QNVNUUQxpwpnt52/07/2025 9:21 AM CDT Missed menses US OB <14 WEEKS W EV AUWZHRPgaflyr92/23/2025 10:58 AM CDT Encounter for supervision of normal first in first trimester from Last 3 Months Results * Vaginitis Panel, DNA Probe (09/04/2025 12:35 PM DATA MANAGEMENT)ComponentValueRef Range Test MethodAnalysis TimePerformed AtPathologist SignatureBacterial Vaginosis YahhgygpEkhcrkyy32/12/2025 1:22 PM [facility] LAB[facility]ORYCandida idjbrkyYubpfyntXzczecck54/12/2025 1:22 PM [facility] Jennifer wyagkrpsIcfxtgjxLdtauepq43/12/2025 1:22 PM [facility] LABORATORYTrichomonas jnsornixpVmmsvnntPdxsfiyd19/12/2025 1:22 PM DATA MANAGEMENT [facility] LABORATORYSpecimen (Source)Anatomical Location / LateralityCollection Method / VolumeCollection TimeReceived TimeSwab STD SPECIMEN FROM VAGINA / UnknownNon-blood Collection / Rtinlvm9609/04/2025 12:35 PM CST09/04/2025 2:52 PM DATA MANAGEMENT [facility] LABORATORY - 09/05/2025 1:22 PM DATA MANAGEMENT Test performed by Assurance Senior Manager Insurance Mediated Amplification (TMA). Authorizing ProviderResult TypeResult StatusCarana rosa Rebollar APRN, CNMLAB_1Final ResultPerforming OrganizationAddressCity/State/ZIP CodePhone Number [facility] CLIA: [id number] [address] * Chlamydia & GC (14 Years and Older): Vagina (09/04/2025 12:35 PM DATA MANAGEMENT)Component ValueRef RangeTest MethodAnalysis TimePerformed AtPathologist Signature Chlamydia Trachomatis STDNot DetectedNot Avmsxncj45/12/2025 1:39 PM DATA MANAGEMENT [facility] LABORATORYN. gonorrhoeae STDNot DetectedNot Detected 09/05/2025 1:39 PM [facility] LABORATORYSpecimen (Source) Anatomical Location / LateralityCollection Method / VolumeCollection Time Received TimeSwab STDSPECIMEN FROM VAGINA / UnknownNon-blood Collection / Hekegvc0209/04/2025 12:35 PM CST09/04/2025 2:52 PM DATA MANAGEMENT Narrative [facility] - 09/05/2025 1:39 PM DATA MANAGEMENT Test performed by Assurance Senior Manager Insurance Mediated Amplification (TMA). Authorizing ProviderResult TypeResult StatusCari Zeny Rebollar APRN, CNMLAB_1Final ResultPerforming OrganizationAddressCity/State/ZIP CodePhone Number [facility] CLIA: [id number] [address] * Syphilis Panel, with Reflex (09/04/2025 12:22 PM DATA MANAGEMENT)ComponentValueRef Range Test MethodAnalysis TimePerformed AtPathologist SignatureTreponema Screen InterpretationNon ReactiveNon Scfgztjq31/11/2025 5:01 PM [facility] LABORATORYSyphilis Panel CommentNegative - No serological evidence of syphilis.09/04/2025 5:01 PM [facility]ST[facility] LABORATORYSpecimen (Source) Anatomical Location / LateralityCollection Method / VolumeCollection Time Received TimeBloodVenipuncture / Dqhdygl6909/04/2025 12:22 PM CST09/04/2025 12:22 PM DATA MANAGEMENT Narrative Authorizing ProviderResult TypeResult StatusCari Zeny Rebollar APRN, CNMLAB_1Final ResultPerforming OrganizationAddressCity/State/ZIP CodePhone Number [facility] CLIA: [id number] [address] * HIV 1/2 Ag/Ab 4th Generation (09/04/2025 12:22 PM DATA MANAGEMENT)ComponentValueRef Range Test MethodAnalysis TimePerformed AtPathologist SignatureHIV 1/2 Antigen/Antibody (4th generation)Negative (Non Reactive)Negative (Non Reactive)09/04/2025 4:56 PM CSTNACOGDOCH[facility] LABORATORYComment:HIV-1 p24 Antigen and HIV-1/HIV-2 Antibody not detectedSpecimen (Source)Anatomical Location / LateralityCollection Method / VolumeCollection TimeReceived Time BloodVenipuncture / Ecplngl2509/04/2025 12:22 PM CST09/04/2025 12:22 PM DATA MANAGEMENT Narrative Authorizing ProviderResult TypeResult StatusTatiana Rebollar APRN, CNMLAB_1Final ResultPerforming OrganizationAddressty/[facility] CodePhone [facility] LABORATORY CLIA: [id number] [address] [place] [address] * Hepatitis C Antibody, with Reflex (09/04/2025 12:22 PM DATA MANAGEMENT)ComponentValueRef RangeTest MethodAnalysis TimePerformed AtPathologist SignatureHepatitis C AntibodyNegative (Non Reactive)Negative (Non Reactive)09/04/2025 4:56 PM DATA MANAGEMENT [facility] LABORATORYComment:Antibodies to HCV not detected. Does not exclude the possiblity of exposure to HCV.Specimen (Source)Anatomical Location / LateralityCollection Method / VolumeCollection TimeReceived TimeBlood Venipuncture / Vbigblr6809/04/2025 12:22 PM CST09/04/2025 12:22 PM DATA MANAGEMENT Narrative Authorizing ProviderResult TypeResult StatusCari Zeny Rebollar APRN, CNMLAB_1Final ResultPerforming OrganizationAddress[facility]/ZIP CodePhone [facility] LABORATORY CLIA: [id number] [address] [place] [address] * HCG, Quantitative, Serum (09/04/2025 12:22 PM DATA MANAGEMENT)ComponentValueRef RangeTest MethodAnalysis TimePerformed AtPathologist SignatureHCG, Quantitative<2<=4 mIU/mL09/04/2025 4:26 PM [facility]STNACO[facility]DO[facility] Specimen (Source)Anatomical Location / LateralityCollection Method / Volume Collection TimeReceived TimeBloodVenipuncture / Dbrxnao8709/04/2025 12:22 PM DATA MANAGEMENT 09/04/2025 12:22 PM DATA MANAGEMENT Narrative [facility] - 09/04/2025 4:26 PM DATA MANAGEMENT Expected ranges Negative: <5 mIU/mL Indeterminate: 5-25 mIU/mL Positive: >25 mIU/mL Suggest repeat testing of indeterminate result in 72 hours. Authorizing ProviderResult TypeResult StatusCarana rosa Rebollar APRN, CNMLAB_1Final ResultPerforming OrganizationAddressCity/State/ZIP CodePhone Number [facility] CLIA: [id number] [address] * HEP B SURFACE ANTIGEN, NO REFLEX (09/04/2025 12:22 PM DATA MANAGEMENT)ComponentValueRef RangeTest MethodAnalysis TimePerformed AtPathologist SignatureHepatitis B Surface AntigenNegative (Non Reactive)Negative (Non Reactive)09/04/2025 5:01 PM CSTNACO[facility]DO[facility] LABORATORYSpecimen (Source)Anatomical Location / LateralityCollection Method / VolumeCollection TimeReceived TimeBlood Venipuncture / Bnieuqz9309/04/2025 12:22 PM CST09/04/2025 12:22 PM DATA MANAGEMENT Narrative Authorizing ProviderResult TypeResult StatusCarana rosa Rebollar APRN, CNMLAB_1Final ResultPerforming OrganizationAddressCity/[facility]/ZIP CodePhone Number [facility] CLIA: [id number] [address] * US OB <14 Weeks w EV Single Follow Up Growth (07/01/2025 9:21 AM CDT) Anatomical RegionLateralityModalityPelvisUltrasoundSpecimen (Source)Anatomical Location / LateralityCollection Method / VolumeCollection TimeReceived Time Impressions 07/01/2025 9:31 AM CDT Findings diagnostic for nonviable . Signed by: Roland Weston 07/01/2025 9:31 AM Narrative 07/01/2025 9:31 AM CDT EXAM: US OB < 14 WEEKS W EV SINGLE FOLLOW UP GROWTH INDICATION: missed menses COMPARISON: 06/17/2025 TECHNIQUE: Transabdominal and transvaginal imaging was performed. FINDINGS: Gestational sac: Single intrauterine gestational sac. ??[place]-rump length is 5 mm (significantly less than expected given measurements on 06/17/2025). ??No cardiac activity is identified. Right Ovary: ??recently measured, appears unremarkable. Left Ovary: ??recently measured, appears unremarkable. No suspicious adnexal masses. [...] FINDINGS: Gestational sac: Single intrauterine gestational sac. [place]-rump lengthis 5 mm (significantly less than expected [...] Signed by: Roland Weston 07/01/2025 9:31 AM Authorizing ProviderResult TypeResult StatusLarissa L [facility] USFinal Result * US OB <14 Weeks W EV Single (06/17/2025 10:58 AM CDT)Anatomical Region LateralityModalityPelvisUltrasoundSpecimen (Source)Anatomical Location / LateralityCollection Method / VolumeCollection TimeReceived Time Impressions 06/17/2025 1:37 PM CDT 1. Early [...] imaging was performed. FINDINGS: Gestational sac: Unremarkable. ??There is a trace area of subchorionic hemorrhage inferior to the gestational sac measuring 5 x 5 x 2 mm. [place]-rump length measures 0.4 cm, corresponding to 6w1d [...] measuring 5 x 5 x 2 mm. [place]-rump length measures 0.4 cm, corresponding to 6w1d [...] Signed by: Casie Haider 06/17/2025 1:37 PM Authorizing ProviderResult TypeResult StatusLarissa Zeny Garrick MDRAD USFinal Result from Last 3 Months Insurance * Guarantor: Lala Sandhu TypeRelation to PatientDate of PhoneBilling AddressPersonal/[address] [place], [place] * Guarantor: Lala Sandhu TypeRelation to PatientDate of PhoneBilling AddressPersonal/[address] [place], [place] * Guarantor: JUSTIN FRANCIS TypeRelation to PatientDate of BirthPhone Billing AddressPersonal/Bfntlr8508/[birth year]/[address] [place] [address] Care Teams Team MemberRelationshipSpecialtyStart DateEnd Date Jennifer Forman PA-C [address] [place] [address] PCP - GeneralPhysician Assistant05/08/23
[2025-09-15 08:00] LABS: Lactate* 2.7 mmol/L (0.5-1.9)
[2025-09-15 08:02] LABS: Hematocrit* 43.8 % (33.0-51.0); Hemoglobin* 15.2 gm/dL (12.0-16.0); Immature Granulocytes Abs Auto 0.01 K/uL (0.00-0.30); Immature Granulocytes Pct Auto 0.1 %; Mean Corpuscular HGB Conc 35 gm/dL (32-36); Mean Corpuscular Hemoglobin 30 pg (26-34); Mean Corpuscular Volume 85 fL (80-100); RDW Coefficient of Variation % 12.2 % (11.5-15.5); Red Blood Count* 5.16 m/uL (4.00-5.20); White Blood Count* 7.50 K/uL (4.50-11.00)
[2025-09-15] MEDS: ONDANSETRON 2 MG/ML inj 4 MG IVP (08:03)
[2025-09-15 08:05] LABS: Lymphocytes Absolute Auto 1.30 K/uL (0.90-2.90); Slide Review Reflex No
[2025-09-15 08:15] LABS: Albumin* 4.7 g/dL (3.3-5.0); Chloride* 101 mmol/L (96-114); Sodium* 136 mmol/L (135-149)
[2025-09-15 08:16] LABS: Potassium* 4.6 mmol/L (3.6-5.1)
[2025-09-15 08:18] LABS: Alanine Aminotransferase* 43 U/L (4-35); Anion Gap 10 mEq/L (7-15); Aspartate Amino Transferase* 37 U/L (12-35); Blood Urea Nitrogen* 17 mg/dL (5-24); Carbon Dioxide* 25 mmol/L (20-32); Creatinine* 0.7 mg/dL (0.5-1.5); Estimated Glomerular Filt Rate 125 ml/min; Total Protein* 8.4 g/dL (6.0-8.3)
--- NOTE | 2025-09-15 08:18 | ED_ITS ---
HPI - General Adult General Time Seen by Provider: 08:19 Date Seen: 09/15/25 Chief complaint: Nausea/Vomiting Stated complaint: Vomiting, Abdomen pain Time Seen by Provider: 09/15/25 08:11 Source: patient and RN notes reviewed Mode of arrival: ambulatory Limitations: no limitations History of Present Illness HPI narrative: This 25-year-old female is coming into the ER with nausea and vomiting starting around 1:00 a.m. this morning, awoke her from sleep. She has had multiple episodes of vomiting throughout the night. She does have upper abdominal pain, thinks it might just be from the vomiting. She has also had some diarrhea. She feels burning in her esophagus from the vomiting. She was feeling anxious earlier, took a lorazepam. Some orders were placed by the ED physician, she is getting IV fluids and Zofran, the Zofran has helped the nausea. She is not working right now, stays at home with her baby. No known ill contacts but she has been out in public and in stores. No on else is sick at home. She has not had any documented fevers but has felt intermittently warm and chilled during this. She did have a negative test a couple weeks ago, there is 1 currently pending. Related Data Home Medications ?Medication ?Instructions ?Recorded ?Confirmed hydralazine 08/27/25 Previous Rx's ?Medication ?Instructions ?Recorded lorazepam 1 mg tablet (Ativan) 1 mg PO TID PRN #10 tab s 08/27/25 cefpodoxime 200 mg tablet 200 mg PO BID 7 days #14 tab s 09/15/25 ondansetron 4 mg disintegrating 4 mg PO Q6H PRN nausea and 09/15/25 tablet vomiting #20 tabs Allergies Allergy/AdvReac Type Severity Reaction Status Date / Time Penicillins Allergy Mild Verified 09/15/25 07:29 Review of Systems Status of ROS: Reports: 6 or more systems reviewed and unremarkable except as noted in History and below Exam Const: Vital Signs, click to edit/add: Vital Signs - 24 hr 09/15/25 07:23 09/15/25 07:36 09/15/25 07:37 Pulse Rate 102 H 94 Pulse Rate [Right Pulse Oximeter] 99 Respiratory Rate 16 Blood Pressure 133/103 H Blood Pressure [Ri ght Upper Arm] 138/101 H Pulse Oximetry 96 96 96 Oxygen Delivery Me thod Room Air 09/15/25 07:41 09/15/25 07:45 09/15/25 08:04 Pulse Rate 84 84 73 Pulse Rate [Right Pulse Oximeter] Respiratory Rate Blood Pressure 128/88 Blood Pressure [Ri ght Upper Arm] Pulse Oximetry 98 97 Oxygen Delivery Me thod 09/15/25 08:05 09/15/25 08:06 09/15/25 08:15 Pulse Rate 87 82 97 Pulse Rate [Right Pulse Oximeter] Respiratory Rate Blood Pressure 115/71 Blood Pressure [Ri ght Upper Arm] Pulse Oximetry 97 97 96 Oxygen Delivery Me thod 09/15/25 08:21 09/15/25 08:30 Pulse Rate 90 91 Pulse Rate [Right Pulse Oximeter] Respiratory Rate Blood Pressure 113/85 Blood Pressure [Ri ght Upper Arm] Pulse Oximetry 97 96 Oxygen Delivery Me thod This 25-year-old female is alert, interactive, no apparent distress. She is seen in exam room 2, she is lying in the bed with IV fluids going. Sclera cl ear, conjugate gaze, symmetrical facial function, speech normal. Lungs are clear, good air entry, no wheeze or crackles, no tachypnea, no accessory muscle use. CV regular rate and rhythm, no murmur, normal S1-S2, no S3-S4. Abdomen with normal bowel sounds, not distended, soft without any rebound or guarding, no masses, no organomegaly, she is completely nontender at this time. Skin visualized without rash or jaundice. Documenting provider has reviewed patient's vital signs: yes Course Course ED Course: The initial labs ordered by Dr. Jose show normal white blood count but elevated lactate. I have ordered a 2 L of lactated Ringer's for total of 2 L of IV fluids to be given. The Zofran has helped her nausea. Will await the rest of the chemistries. If the chemistries are stable, likely to do a flat and upright. There is anything concerning with her labs or her course here, will consider CT imaging. Her abdominal exam is very benign at this time and I do suspect viral gastroenteritis at this point. Reevaluation(s) Time of Reevaluation #1: 08:44 Reevaluation #1: Have ordered a flat and upright upon review of patient's chemistries. Still waiting urine collection. Patient is asking for something for anxiety. Will give her hydroxyzine, see if she can keep this down. Time of Reevaluation #2: 09:40 Reevaluation #2: Have reviewed with patient that her urinalysis appears to show infection with positive nitrite. She is not having any urinary system issues, no history of pyelonephritis or kidney infection before. We did discuss the need for repeat lactate. She had wanted to discharge and did not want the 2 L of fluid I ordered. She certainly can try drinking, will order Rocephin for her. Her exam still is benign, she is improved. I would consider this pyelonephritis, do not feel that imaging is going to change our management, if she can tolerate orals, can discharge to home for outpatient management. Urine will be cultured. Time of Reevaluation #3: 10:10 Reevaluation #3: Patient's lactate definitely improved. Do think outpatient management is definitely appropriate in this patient. Will discharge once her Rocephin is complete. Vital Signs Vital signs: Initial Vital Signs Temperature Source Temporal Artery Scan 09/15/25 07:23 Pulse Rate 99 09/15/25 07:23 Pulse Rhythm Regular 09/15/25 07:23 Pulse Strength 3+ Normal 09/15/25 07:23 Respiratory Rate 16 09/15/25 07:23 Blood Pressure 138/101 H 09/15/25 07:23 Blood Pressure Mean 113 H 09/15/25 07:23 Blood Pressure Position Sitting 09/15/25 07:23 Pulse Oximetry 96 09/15/25 07:23 Oxygen Delivery Method Room Air 09/15/25 07:23 Vital Signs Pulse Rate 99 09/15/25 07:23 Respiratory Rate 16 09/15/25 07:23 Blood Pressure 138/101 H 09/15/25 07:23 Pulse Oximetry 96 09/15/25 07:23 Oxygen Delivery Method Room Air 09/15/25 07:23 Pulse Rate 91 09/15/25 08:30 Respiratory Rate 16 09/15/25 07:23 Blood Pressure 113/85 09/15/25 08:21 Pulse Oximetry 96 09/15/25 08:30 Oxygen Delivery Method Room Air 09/15/25 07:23 Medications Administered Medications: Discontinued Medications Generic Name Dose Route Start Last Admin Trade Name Freq PRN Reason Stop Dose Admin Hydroxyzine Pamoate 50 mg 09/15/25 08:44 09/15/25 08:54 Hydroxyzine Pamoate 25 Mg Capsule PO 09/15/25 08:45 50 mg ONCE ONE Administration Sodium Chloride 1,000 mls @ 1,000 mls/hr 09/15/25 07:45 09/15/25 10:11 0.9 % Sodium Chloride 1000 Ml IV 09/15/25 08:44 Infused .Q1H GEOVANI Infusion Lactated Ringer's 1,000 mls @ 1,000 mls/hr 09/15/25 08:27 09/15/25 10:11 Lactated Ringers 1000 Ml IV 09/15/25 09:26 Not Given .Q1H ONE Ceftriaxone Sodium 2 gm/ 100 mls @ 200 mls/hr 09/15/25 09:42 09/15/25 10:05 Sodium Chloride IVPB 09/15/25 10:11 200 mls/hr ONCE ONE Administration Ondansetron HCl 4 mg 09/15/25 07:43 09/15/25 08:03 Ondansetron 2 Mg/Ml Inj IVP 09/15/25 07:44 4 mg ONCE ONE Administration Medical Decision Making Lab Data Lab results reviewed: Yes I reviewed the patient's lab results Labs: Lab Results 09/15/25 09/15/25 09/15/25 Range/Units 07:55 08:40 09:45 WBC 7.50 (4.50-11.00) K/uL RBC 5.16 (4.00-5.20) m/uL Hgb 15.2 (12.0-16.0) gm/dL Hct 43.8 (33.0-51.0) % MCV 85 (80-100) fL MCH 30 (26-34) pg MCHC 35 (32-36) gm/dL RDW Coeff of [place] 12.2 (11.5-15.5) % Plt Count 348 (140-440) K/uL Neut % (Auto) 77.5 H (42.0-72.0) % Lymph % (Auto) 17.2 L (20-44) % Faulk % (Auto) 4.8 (0.0-11.0) % Eos % (Auto) 0.0 (0.0-7.0) % Baso % (Auto) 0.4 (0.0-3.0) % Neut # (Auto) 5.80 (1.7-7.0) K/uL Lymph # (Auto) 1.30 (0.90-2.90) K/uL Faulk # (Auto) 0.40 (0.00-0.90) K/UL Eos # (Auto) 0.00 (0.00-0.50) K/uL Baso # (Auto) 0.03 (0.00-0.30) K/uL Abs Immat Gran (auto) 0.01 (0.00-0.30) K/uL Imm/Tot Granulo (auto) 0.1 % Sodium 136 (135-149) mmol/L Potassium 4.6 (3.6-5.1) mmol/L Chloride 101 (96-114) mmol/L Carbon Dioxide 25 (20-32) mmol/L Anion Gap 10 (7-15) mEq/L BUN 17 (5-24) mg/dL Creatinine 0.7 (0.5-1.5) mg/dL Estimated GFR 125 ml/min Glucose 115 (60-115) mg/dL Lactate 2.7 H 2.0 H (0.5-1.9) mmol/L Calcium 8.5 (8.4-10.6) mg/dL Total Bilirubin 1.0 (0.1-1.5) mg/dL Direct Bilirubin 0.4 (0.0-0.5) mg/dL AST 37 H (12-35) U/L ALT 43 H (4-35) U/L Alkaline Phosphatase 81 (40-150) U/L C-Reactive Protein < 0.5 L (0.5-1.0) mg/dL Total Protein 8.4 H (6.0-8.3) g/dL Albumin 4.7 (3.3-5.0) g/dL Amylase 94 H (18-89) U/L Lipase 94 (23-300) U/L Urine Color Dark yellow (Yellow) Urine Appearance Cloudy A (Clear) Urine pH 7.5 (5.0-8.5) Ur Specific [place] 1.020 (1.000-1.030) Urine Protein 2+ A (Negative) Urine Glucose (UA) Negative (Negative) Urine Ketones Negative (Negative) Urine Blood Negative (Negative) Urine Nitrite Positive A (Negative) Urine Bilirubin Negative (Negative) Urine Urobilinogen 0.2 (0.2-1.0) Ur Leukocyte Esterase Trace A (Negative) Urine RBC 0-2 (0-2) Urine WBC 2-5 (0-5) Ur Squamous Epith Cells Moderate A (None-Few) Urine Bacteria Many A (None) Urine HCG, Qual Negative (Negative) Urine Opiates Screen Negative (Negative) Ur Oxycodone Screen Negative (Negative) Urine Methadone Screen Negative (Negative) Ur Barbiturates Screen Negative (Negative) U Tricyclic Antidepress Negative (Negative) Ur Phencyclidine Scrn Negative (Negative) Ur Amphetamines Screen Negative (Negative) U Methamphetamines Scrn Negative (Negative) U Benzodiazepines Scrn POSITIVE A (Negative) Urine Cocaine Screen Negative (Negative) U Marijuana (THC) Screen Negative (Negative) Ur Drug Screen Comment See Note Imaging Data Abdominal x-ray: Attestation: I have reviewed the pertinent imaging results. Radiologist's impression: Patient: IRAIS SANDHU Facility:?[facility] Patient ID:?[id number] Site Patient ID:?[id number]. Site :?[id number] Study:?XRay-Abdomen/Pelvis FLAT AND UPRIGHT-09/15/2025 9:24:43 AM Ordering Physician:Shivam Núñez Final Report: INDICATION: Nausea vomiting and diarrhea TECHNIQUE: Upright and supine views. COMPARISON: None available FINDINGS: There is a nonspecific, nonobstructive bowel gas pattern. There is a minimal proximal amount of intracolonic fecal distention. There is no intra-abdominal free air or pathologic calcification. There is no acute osseous abnormality. IMPRESSION: Nonspecific, nonobstructive bowel gas pattern. Minimal proximal stool within the right hemicolon. Dictated by Mark Arreola MD @ 09/15/2025 9:29:06 AM (Electronic Signature) Discharge Plan Discharge Clinical Impression: Nausea and vomiting Qualifiers: Vomiting type: unspecified Qualified Code(s): R11.2 - Nausea with vomiting, unspecified Urinary tract infection Qualifiers: Urinary tract infection type: acute pyelonephritis Qualified Code(s): N10 - Acute pyelonephritis Patient Disposition: Home, Self-Care Condition: Stable Instructions: Kidney Infection (ED), Acute Nausea and Vomiting (ED) Additional Instructions: Start oral antibiotics tonight and take as prescribed. This is presumably a pyelonephritis or infection in the kidney given that you have significant nausea and vomiting. You may develop fevers, may have some back or upper abdominal codi n with this at times. If you are unable to tolerate oral antibiotics, have progression or worsening of your symptoms, do need to return for re-evaluation. Can use Zofran to help with any nausea or vomiting but if nausea and vomiting are continuing beyond 48 hours, do recommend re-evaluation. Activity Level: Activity as Tolerated Prescriptions: New ondansetron 4 mg tablet,disintegrating 4 mg PO Q6H PRN (Reason: nausea and vomiting) Qty: 20 0RF cefpodoxime 200 mg tablet 200 mg PO BID 7 Days Qty: 14 0RF Rx Instructions: must administer with a meal/food No Action hydralazine lorazepam [Ativan] 1 mg tablet 1 mg PO TID PRNQty: 10 0RF Follow Up/Referrals: Provider,Not a Local [Primary Care Provider, Family Practice] Stand Alone Forms: [facility] vida [facility] feita de [place] Info Instructions
[2025-09-15 08:19] LABS: Alkaline Phosphatase* 81 U/L (40-150); Bilirubin Direct* 0.4 mg/dL (0.0-0.5); Bilirubin Total* 1.0 mg/dL (0.1-1.5); Calcium* 8.5 mg/dL (8.4-10.6); Glucose* 115 mg/dL (60-115)
--- NOTE | 2025-09-15 08:43 | CRLHL7_ITS ---
For Patients: As a result of the Century Cures Act, medical imaging exams and procedure reports are released immediately into your electronic medical record. You may view this report before your referring provider. If you have questions, please contact your health care provider. INDICATION: Nausea vomiting and diarrhea TECHNIQUE: Upright and supine views. COMPARISON: None available FINDINGS: There is a nonspecific, nonobstructive bowel gas pattern. There is a minimal proximal amount of intracolonic fecal distention. There is no intra-abdominal free air or pathologic calcification. There is no acute osseous abnormality. IMPRESSION: Nonspecific, nonobstructive bowel gas pattern. Minimal proximal stool within the right hemicolon. Dictated by Mark Arreola MD @ 09/15/2025 9:29:06 AM (Electronically Signed)
[2025-09-15 08:51] LABS: Appearance Urine Cloudy (Clear)
[2025-09-15 08:52] LABS: Ur HCG Qualitative* Negative (Negative)
[2025-09-15 09:05] LABS: Cannabinoid Screen Urine Negative (Negative); Methamphetamines Screen Urine Negative (Negative); Tricyclic Antidepressant Urine Negative (Negative)
[2025-09-15 09:48] LABS: Lactate* 2.0 mmol/L (0.5-1.9)
[2025-09-15] MEDS: cefTRIAXone 2 GM in 0.9 % SODIUM CHLORIDE Mini-bag 100 ML IVPB (10:05)
== END 2025-09-15 10:40 | disposition home or self-care (01) ==
PROVIDERS: Family Medicine; Emergency Provider Family Medicine
DX: R11.2 Nausea with vomiting, unspecified (principal); N10 Acute pyelonephritis
CPT/HCPCS: 36415; 74019; 80048; 80076; 80306; 81001; 81025; 82150; 83605; 83690; 85025; 86140; 87086; 96365; 96375; 99284; A9270; J0696; J2405; J7030